=== PATIENT | male | born 1945 | race Caucasian/White ===

== ENCOUNTER 2021-02-09 10:42 | Observation (INO) | payer OTHER ==
[~2021-02-09] VITALS: Ht 175.3 cm; Wt 73.0 kg
[~2021-02-09 10:42] MED LIST: ALPHA LIPOIC A100 MG PO; BASAGLAR K100 UNIT/1 SUBQ; CANDESARTAN-HC1 EAC1 PO; CAPZASIN-HP42.5 GM TOP; CO-ENZYME Q-1010 MG PO; FINASTERIDE5 MG PO; INDAPAMIDE2.5 MG PO; METOPROLOL SUCC25 M1 PO; NORCO 10-325 T1 EACH PO; TIZANIDINE HCL4 M1 PO; TYLENOL325 M1 PO; VITAMIN D375 MCG PO; VITAMIN K2100 MCG PO; VITAMIN K7 PO
[2021-02-09 12:10] LABS: ABSOLUTE NEUTROPHILS 7.6 thou/uL (1.4-8.2); BASOPHILS 0.5 % (0.0-2.0); HEMATOCRIT 40.1 % (42.0-52.0); HEMOGLOBIN 13.6 gm/dL (14.0-18.0); LYMPHOCYTES 20.9 % (24.0-44.0); MCH 29.4 pg (26.0-34.0); MCHC 33.9 g/dL (28.0-37.0); MCV 86.8 fL (80.0-100.0); MONOCYTES 4.3 % (1.0-8.0); PLATELET COUNT 192 thou/uL (150-400); POLYS 72.3 % (36.0-66.0); RBC 4.62 mil/uL (4.50-6.00); RDW 13.1 % (10.5-14.5); WBC 10.5 thou/uL (4.0-11.0)
[2021-02-09 12:17] LABS: CALCIUM 9.4 mg/dL (8.5-10.1); POTASSIUM 3.5 mmol/L (3.5-5.1)
[2021-02-09 12:23] LABS: ALBUMIN 3.8 g/dL (3.4-5.0); TOTAL BILIRUBIN 0.4 mg/dL (0.2-1.0); TOTAL PROTEIN 7.1 g/dL (6.4-8.2)
[2021-02-09 13:09] VITALS: BP 144/75
[2021-02-09 16:34] VITALS: BP 153/69
--- NOTE | 2021-02-09 17:22 | NUR ---
ASSUMED PT CARE FROM PACU AT 1630. PT IS ALERT & ORIENTED X4. PT HAS IV SITE ON R HAND RUNNING LR @50ML/HR. PT IS ACCUCHECK ACHS. PT HAD ZINKER STAPLING DONE TODAY AND HAS INTERNAL AHSAN IN ESOPHAGUS PER PACU NURSE. PT IS ON ROOM AIR. NO C/O OF PAIN, NAUSEA AND VOMITING THIS AFTERNOON. FINISHED ADMISSION. PT HAS DC ORDER FOR TOMORROW. WILL ENDORSE NIGHT NURSE. WILL CONTINUE TO MONITOR PT. FOLLOW POC.
[2021-02-09 19:15] VITALS: BP 132/53
--- NOTE | 2021-02-10 03:13 | NUR ---
PT IS A/O X4 AND IS UP WITH SBA TO THE BR. PLEASANT. CAN BE IMPULSIVE AT TIMES. C/O HEADACHE. PRN PAIN MEDICATION GIVEN DIRECTED. MEDICATIONS GIVEN DIRECTED. FALL PRECAUTIONS IN PLACE,CALL LIGHT IS WITHIN REACH. MEDICATIONS FOUND IN PT ROOM AFTER PT MENTIONING WANTING TO TAKE THEM. COLLECTED AND TAKEN TO PHARMACY. PT CALLED TO COME TO HOSPITAL TO BRING HIM PILLS. INFORMED PT THAT WAS AGAINST HOSPITAL POLICY. FALL PRECUATIONS IN PLACE, CALL LIGHT IS WITHIN REACH. WILL CONTINUE TO MONITOR.
[2021-02-10 04:38] VITALS: BP 148/76
[2021-02-10 06:31] VITALS: BP 148/76
--- NOTE | 2021-02-10 08:30 | EKG ---
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
--- NOTE | 2021-02-10 10:56 | O ---
[facility] [place] [address] OPERATIVE REPORT Name: RAMOS GUSTAFSON Room #: 436-P [facility]#: [id number] Admission: 02/09/21 Attend Phys: Jesse Olguin MD Discharge: Date of : 45 Report #: [id number] THIS REPORT FOR: cc: Ramos Hughes MD, Thomas P. MD Walton,Jesse Acevedo MD ~ cc: Ramos Hughes MD, Keny Sales MD DATE OF SERVICE: 02/09/2021 PREOPERATIVE DIAGNOSES: 1. Zenker diverticulum. 2. Cervical dysphagia. 3. Severe dental disease. POSTOPERATIVE DIAGNOSES: 1. Zenker diverticulum. 2. Cervical dysphagia. 3. Severe dental disease. OPERATIONS PERFORMED: 1. Endoscopic marsupialization of Zenker diverticulum. 2. Direct laryngoscopy. 3. Rigid esophagoscopy. 4. Cricopharyngeal myotomy. SURGEON: Jesse Olguin MD ANESTHESIA: General endotracheal. 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 Sales for options for his Zenker diverticulum, this has been severely symptomatic. The patient underwent a barium esophagram showing a wide mouth Zenker's, measuring at least 2.5 x 1.5 x 2.5 cm. We talked about endoscopic marsupialization via ZEHRA stapling for treatment and at the same time achieving cricopharyngeal myomy. The patient was amenable to proceeding because of severe dysphagia. The patient had been referred to his dentist preoperatively for mouth guards. Unfortunately, the mouth guards that were made were enormous and were not appropriate for this procedure. DESCRIPTION OF PROCEDURE: The patient was brought to the operating room and placed supine on the operating table. After adequate general anesthesia was achieved via endotracheal intubation, he was turned 90 degrees. Shoulder roll was placed and neck was extended. He was prepped and draped for endoscopy. The procedure began with direct laryngoscopy using a Weerda laryngoscope. Complete examination was made of the oral cavity, oropharynx, hypopharynx, and larynx. [facility] [address] [place] [address] OPERATIVE REPORT Name: GUSTAFSONRAMOS Room #: 436-P [facility]#: [id number] Admission: 02/09/21 Attend Phys: Jesse Olguin MD Discharge: Date of : 45 Report #: [id number] No significant mucosal abnormalities were identified. The Weerda scope was then advanced post-cricoid to the upper esophagus. The Zenker diverticulum was easily identified, full of food debris, a video print was taken to document. This was then positioned above the cricopharyngeus muscle and the Weerda scope expanded, so that I could visualize both lumens. The esophagus was confirmed by passing a bougie into the esophagus to the stomach. The sac itself was quite large, measuring almost 4.5 cm deep. This was very wide mouth. Once all the food had been removed, this was irrigated and suctioned making sure there was no mucosal abnormality noted. Other than the irritation from the food, no other lesions were noted. Once this was confirmed, the ZEHRA stapler was chosen with a blue load. This was then rotated 90 degrees, so that the anvil was placed in the esophagus proper and the manipulating load superiorly could be closed down on to the anvil. Once this was in position, the stapler was closed, a few moments passed to allow tissue edema to clear and then the stapler was fired. This laid down a row of anabel on each side and at the same time achieved cricopharyngeal myotomy. The stapler was then removed and the scope passed again. Documentation was made with video print. There still was a significant portion of the diverticulum remaining and for that reason, a second blue load was chosen. The anvil again was placed down the esophagus after confirming with a bougie. The stapler was then closed, again tissue edema was allowed to dissipate and then the stapler was fired. A second row of anabel was then fired. Inherent in this technique, there is about a centimeter of tissue left at the bottom of the diverticulum that cannot be captured. This was left alone. I then irrigated and made sure all loose anabel that were present were suctioned or removed with forceps. Video prints were taken to document at the end. A bougie was passed in the esophagus to make sure this was clear. Esophagoscopy was undertaken to the mid portion of the esophagus. No other mucosal lesions were noted. Once this was irrigated, the bougie was removed and the Weerda laryngoscope then passed slowly out of the hypopharyngeal region. Again, a search was made for any anabel, 3 more loose anabel were found and removed. The Weerda scope was then completely removed. The patient's tooth guard was then removed. No tooth damage was noted. The patient was returned to Anesthesia, awakened without difficulty and returned to recovery in good condition. Sponge and needle counts were correct. There were no complications and the blood loss was less than 1 mL. He will be watched until awake and stable overnight. Presuming he does well, he may be discharged to home in the morning with plans to follow up with me in 1 week. Written and verbal discharge instructions and emergency precautions have been given to him and his family. The patient has been made aware that in future studies, the Zenker diverticulum [facility] [address] [place] [address] OPERATIVE REPORT Name: ARMOS GUSTAFSON Room #: 436-P [facility]..#: [id number] Admission: 02/09/21 Attend Phys: Jesse Olguin MD Discharge: Date of : 45 Report #: [id number] was not removed and will still be visible, but this has now been marsupialized and opened widely into the esophagus for transit of food and fluid. <ELECTRONICALLY SIGNED> By: Jesse Olguin MD 02/10/21 1056 1330 1445 Jesse Olguin MD /nt
== END 2021-02-10 07:00 | disposition home or self-care (01) ==
LOC: OR 10:42 → 4S 16:22 → OR 16:23 → 4S 02-10 07:00
PROVIDERS: ADMIT Otolaryngology Plastic Surgery within the Head & Neck; ATTEND Otolaryngology Plastic Surgery within the Head & Neck
DX: K22.5 Diverticulum of esophagus, acquired (principal); Z20.822 Contact with and (suspected) exposure to COVID-19; R13.19 Other dysphagia; K08.9 Disorder of teeth and supporting structures, unspecified; Z79.899 Other long term (current) drug therapy
CPT/HCPCS: 10102; 50010; 50101; 50243; 50246; 62110; 62900; 70005